=== PATIENT | male | born 1960 | race Caucasian/White ===

== ENCOUNTER → 2017-04-11 | Outpatient (CLI) | payer OTHER | LOC: HYPER 03-14 13:17 | DX: E11.622 Type 2 diabetes mellitus with other skin ulcer (principal); I83.008 Varicose veins of unspecified lower extremity with ulcer other part of lower leg; L97.811 Non-pressure chronic ulcer of other part of right lower leg limited to breakdown of skin; L97.821 Non-pressure chronic ulcer of other part of left lower leg limited to breakdown of skin; I87.2 Venous insufficiency (chronic) (peripheral); I10 Essential (primary) hypertension; F84.5 Asperger's syndrome; G47.33 Obstructive sleep apnea (adult) (pediatric); E55.9 Vitamin D deficiency, unspecified; L71.9 Rosacea, unspecified; E11.51 Type 2 diabetes mellitus with diabetic peripheral angiopathy without gangrene; E78.5 Hyperlipidemia, unspecified ==

== ENCOUNTER → 2017-05-02 | Outpatient (CLI) | payer OTHER | LOC: HYPER 07:51 | DX: I83.008 Varicose veins of unspecified lower extremity with ulcer other part of lower leg (principal); L97.811 Non-pressure chronic ulcer of other part of right lower leg limited to breakdown of skin; L97.821 Non-pressure chronic ulcer of other part of left lower leg limited to breakdown of skin; E11.622 Type 2 diabetes mellitus with other skin ulcer; E11.51 Type 2 diabetes mellitus with diabetic peripheral angiopathy without gangrene; I10 Essential (primary) hypertension; G47.33 Obstructive sleep apnea (adult) (pediatric); E78.5 Hyperlipidemia, unspecified; F84.5 Asperger's syndrome ==

== ENCOUNTER → 2019-10-07 | Outpatient (CLI) | payer OTHER | LOC: SJCVC 10:43 | DX: I48.0 Paroxysmal atrial fibrillation (principal); I10 Essential (primary) hypertension; I73.9 Peripheral vascular disease, unspecified; F32.9 Major depressive disorder, single episode, unspecified; Z79.82 Long term (current) use of aspirin; Z79.899 Other long term (current) drug therapy ==

== ENCOUNTER → 2019-11-26 | Outpatient (CLI) | payer OTHER ==
[2019-11-26 12:07] VITALS: BP 130/76
--- NOTE | 2019-11-29 17:44 | LINQ ---
[facility] [place] [address] LINQ PROCEDURE REPORT Name: FILIBERTO LOZA Room #: REG SHARIFA OttoCarlos#: [id number] Admission: 11/26/19 Attend Phys: Brad Howard Discharge: Date of : 60 Report #: [id number] THIS REPORT FOR: cc: Natty Villegas MD, Kristin E. MD Lammoglia, Francisco J. MD ~ THIS REPORT FOR: //name// APPROVED REPORT Study performed: 11/26/2019 13:24:19 Patient Status: Out-Patient Room #: Event Personnel: Brad Howard MD Exam: Loop Recorder Insertion Indications: Afib The patient is a 59 year-old male with a history of Asperger syndrome and transient atrial fibrillation. Studies obtained to document presence of paroxysmal atrial fibrillation. Implanted Devices: CONFIRM Rx; Reference #: [id number]; SN: [id number]; Use before: 2021-04-14 Procedure The patient underwent informed consent. We discussed the details of the procedure including the risks, which include, but not limited to bleeding, infection, vascular damage, cardiac perforation, and pneumothorax. The subclavian region was infiltrated with 2% subcutaneous anesthesia. A transverse incision was made in the upper chest cavity. After informed consent was obtained the patient was brought to the cardiac catheterization prep and hold. The left chest was prepped and draped in usual sterile manner. Utilizing 1% lidocaine the proposed incision site was anesthetized. A tract was developed with the lidocaine throughout the proposed deployment track. Utilizing a 11 blade a small incision was then made on the skin. Utilizing both blunt and sharp dissection a tract was developed. The device was then deployed utilizing the enclosed deployment total. Post deployment the subcutaneous tissue was closed with 2 simple interrupted sutures and the skin was closed with a 3-0 Vicryl subcuticular stitch. Patient tolerated procedure well with no complications [address] [address] [employer]mocide PROCEDURE REPORT Name: FILIBERTO LOZA Room #: REG [facility]#: [id number] Admission: 11/26/19 Attend Phys: Brad Pavon Discharge: Date of : 60 Report #: [id number] Complications The patient tolerated the procedure well and there were no complications associated with the procedure. Conclusion 1. Successful insertion of a [facility] implantable loop recorder Recommendations 1. Routine post loop recorder insertion <ELECTRONICALLY SIGNED> By: Brad Howard MD 11/29/19 [id number] Brad Howard MD /INF
== END | disposition home or self-care (01) ==
LOC: CATH 07:03
DX: I48.91 Unspecified atrial fibrillation (principal); Z79.01 Long term (current) use of anticoagulants